=== PATIENT | female | born 1950 | race Caucasian/White ===

== ENCOUNTER → 2016-07-08 | Outpatient (CLI) | payer MEDICARE, MEDICAID ==
[~2016-07-08] MED LIST: ACET650S25 GT; CLON0.1T14 PO; Carbamazepine NG; GABA-531 NG; IPRA3AMP9 HHN; LOV40 SUBCUT; Lactulose PO; OMEP20CA10 PO; Ondansetron Hcl/Pf IV; Thiamine Hcl PO
== END | disposition home or self-care (01) ==
LOC: US 15:52
PROVIDERS: ATTEND Internal Medicine
DX: N63 Unspecified lump in breast (principal)
CPT/HCPCS: 76642

== ENCOUNTER → 2017-08-01 | Day surgery (SDC) | payer MEDICARE, MEDICAID ==
[~2017-08-01] VITALS: Ht 147.3 cm; Wt 54.4 kg
[~2017-08-01] MED LIST changes: +DEXAMETHASONE 4MG/ML 1ML VIAL ONE; +DUONEB3 ML HHN; +FENTANYL CITRATE/PF 50MCG/ML 2ML VIAL ONE; +HYDROMORPHONE HCL/PF 2MG/ML CPJ IV PRN; -IPRA3AMP9 HHN; +LABETALOL 5MG/ML SYR 20 MG/4 ML SYRINGE IV PRN; +MEPERIDINE HCL/PF 25MG/ML CPJ IV PRN; +MIDAZOLAM HCL 2 MG/2 ML VIAL ONE; +ONDANSETRON HCL 4MG/2ML VIAL IV PRN; +ONDANSETRON HCL 4MG/2ML VIAL ONE; +PROPOFOL 200MG/20ML VIAL IV ONE
[2017-08-01 10:37] LABS: BASOPHILS % 1.1 % (0.0-2.0); EOSINOPHILS % 3.3 % (0.0-5.0); HEMOGLOBIN. 12.7 g/dL (12.0-16.0); LYMPHOCYTES % 33.7 % (20.0-50.0); MEAN CORPUSCULAR VOLUME 93.3 fL (81.0-99.0); MEAN PLATELET VOLUME 10.5 fl (7.4-10.4); MONOCYTES % 9.8 % (2.0-8.0); NEUTROPHILS % 52.1 % (40.0-76.0); PLATELET 180 x1000/uL (130-400); RED BLOOD CELL COUNT 3.97 mill/uL (4.2-5.4); RED CELL DISTRIBUTION WIDTH 13.1 % (11.6-14.6)
[2017-08-01 10:44] LABS: CHLORIDE 97 mEq/L (98-107)
[2017-08-01 10:46] LABS: INR 1.1; PARTIAL THROMBOPLASTIN TIME 25.3 sec (23.4-31.0)
== END | disposition home or self-care (01) ==
LOC: OR 07:32
PROVIDERS: ATTEND Internal Medicine Clinical Cardiac Electrophysiology
DX: Z45.010 Encounter for checking and testing of cardiac pacemaker pulse generator [battery] (principal); Z53.8 Procedure and treatment not carried out for other reasons; Z79.899 Other long term (current) drug therapy; Z79.01 Long term (current) use of anticoagulants
CPT/HCPCS: 36415; 80048; 85025; 85610; 85730; 93005; J1100; J2250; J2405; J2704; J3010

== ENCOUNTER 2018-08-02 12:17 | Emergency (ER) | payer MEDICARE, MEDICAID ==
[~2018-08-02] VITALS: Ht 160 cm; Wt 55.0 kg
[~2018-08-02 12:17] MED LIST changes: -DEXAMETHASONE 4MG/ML 1ML VIAL ONE; -FENTANYL CITRATE/PF 50MCG/ML 2ML VIAL ONE; -HYDROMORPHONE HCL/PF 2MG/ML CPJ IV PRN; -LABETALOL 5MG/ML SYR 20 MG/4 ML SYRINGE IV PRN; -MEPERIDINE HCL/PF 25MG/ML CPJ IV PRN; -MIDAZOLAM HCL 2 MG/2 ML VIAL ONE; -ONDANSETRON HCL 4MG/2ML VIAL IV PRN; -ONDANSETRON HCL 4MG/2ML VIAL ONE; -PROPOFOL 200MG/20ML VIAL IV ONE
[2018-08-02] MEDS ORDERED: SODIUM CHLORIDE 0.9% 1,000 ML IV ONE (12:40)
[2018-08-02 13:21] LABS: BASOPHILS % 1.2 % (0.0-2.0); EOSINOPHILS % 3.2 % (0.0-5.0); HEMATOCRIT. 36.7 % (36.0-48.0); HEMOGLOBIN. 12.2 g/dL (12.0-16.0); LYMPHOCYTES % 28.3 % (20.0-50.0); MEAN CORPUSCULAR HEMOGLOBIN 31.5 pg (28.0-32.0); MEAN CORPUSCULAR VOLUME 94.7 fL (81.0-99.0); MEAN PLATELET VOLUME 10.2 fl (7.4-10.4); MONOCYTES % 8.8 % (2.0-8.0); NEUTROPHILS % 58.5 % (40.0-76.0); PLATELET 162 x1000/uL (130-400); RED BLOOD CELL COUNT 3.88 mill/uL (4.2-5.4); RED CELL DISTRIBUTION WIDTH 13.1 % (11.6-14.6)
[2018-08-02 13:24] LABS: CHLORIDE 108 mEq/L (98-107)
[2018-08-02 13:29] LABS: ETHANOL BLOOD < 10 mg/dL
[2018-08-02 14:56] LABS: CLARITY URINE CLEAR (CLEAR); COLOR URINE YELLOW (YELLOW); KETONES URINE NEGATIVE (NEGATIVE); LEUKOCYTE ESTERASE URINE TRACE (NEGATIVE); NITRITE URINE POSITIVE (NEGATIVE); OCCULT BLOOD URINE NEGATIVE (NEGATIVE); PROTEIN URINE NEGATIVE (NEGATIVE); SPECIFIC GRAVITY URINE 1.018 (1.005-1.030); UROBILINOGEN URINE 0.2 E.U./dL (0.2-1.0)
[2018-08-02 15:15] LABS: *AMPHETAMINES SCREEN URINE NEGATIVE (NEGATIVE); *BARBITURATES SCREEN URINE NEGATIVE (NEGATIVE); *BENZODIAZEPINES SCREEN URINE NEGATIVE (NEGATIVE); *COCAINE SCREEN URINE NEGATIVE (NEGATIVE); METHADONE URINE SCREEN NEGATIVE (NEGATIVE); OPIATES URINE SCREEN NEGATIVE (NEGATIVE); PHENCYCLIDINE URINE SCREEN NEGATIVE (NEGATIVE)
[2018-08-02 15:16] LABS: CANNABINOID URINE SCREEN NEGATIVE (NEGATIVE)
[2018-08-02 16:09] VITALS: BP 113/83
== END 2018-08-02 16:55 | disposition home or self-care (01) ==
LOC: ER 12:17 → CANBEDREQ 17:28
DX: E86.0 Dehydration (principal); N39.0 Urinary tract infection, site not specified; R40.4 Transient alteration of awareness; E03.9 Hypothyroidism, unspecified; R79.89 Other specified abnormal findings of blood chemistry; G40.909 Epilepsy, unspecified, not intractable, without status epilepticus; I25.10 Atherosclerotic heart disease of native coronary artery without angina pectoris; F79 Unspecified intellectual disabilities; R62.59 Other lack of expected normal physiological development in childhood; Z88.8 Allergy status to other drugs, medicaments and biological substances; Z95.0 Presence of cardiac pacemaker
CPT/HCPCS: 36415; 70450; 71045; 80053; 80305; 80320; 81003; 82140; 83880; 84443; 84484; 85025; 93005; 96360; 99284; J7030; G0480

== ENCOUNTER 2019-01-24 13:52 | Inpatient (IN) | payer MEDICARE, MEDICAID ==
[~2019-01-24] VITALS: Ht 152.4 cm; Wt 65.8 kg
[~2019-01-24 13:52] MED LIST changes: -OMEP20CA10 PO; +OMEP20CA5 PO
[2019-01-24 15:45] LABS: CHLORIDE 107 mEq/L (98-107); INR 1.5; PROTHROMBIN TIME 14.9 sec (9.6-11.0)
[2019-01-24 15:46] LABS: HEMATOCRIT. 39.1 % (36.0-48.0); HEMOGLOBIN. 13.3 g/dL (12.0-16.0); MEAN CORPUSCULAR HEMOGLOBIN 32.2 pg (28.0-32.0); MEAN CORPUSCULAR VOLUME 94.6 fL (81.0-99.0); MEAN PLATELET VOLUME 10.2 fl (7.4-10.4); PLATELET 172 x1000/uL (130-400); RED BLOOD CELL COUNT 4.14 mill/uL (4.2-5.4); RED CELL DISTRIBUTION WIDTH 13.5 % (11.6-14.6)
[2019-01-24 16:10] LABS: PLATELET ESTIMATE NORMAL
[2019-01-24 17:10] LABS: CLARITY URINE CLOUDY (CLEAR); COLOR URINE YELLOW (YELLOW); KETONES URINE NEGATIVE (NEGATIVE); LEUKOCYTE ESTERASE URINE 1+ (NEGATIVE); NITRITE URINE NEGATIVE (NEGATIVE); OCCULT BLOOD URINE 1+ (NEGATIVE); PROTEIN URINE 1+ (NEGATIVE); SPECIFIC GRAVITY URINE 1.031 (1.005-1.030)
[2019-01-24] MEDS ORDERED: CEFTRIAXONE 1 G PREMIX 50 ML IV ONE (17:30)
[2019-01-24] MEDS ORDERED: CEFTRIAXONE 1,000 MG in DEXTROSE 5% WATER 50 ML IV SCH (18:00)
[2019-01-24] MEDS ORDERED: HYDRALAZINE 20MG/ML VIAL IV PRN (22:30)
[2019-01-24] MEDS ORDERED: CLONIDINE 0.1MG TABLET PO PRN (22:30)
[2019-01-24] MEDS ORDERED: IPRATROPIUM/ALBUTEROL 0.5-3(2.5)MG/3ML NEB HHN PRN (22:30)
[2019-01-24] MEDS ORDERED: GUAIFENESIN 200MG/10ML SUGAR FREE UDC PO PRN (22:30)
[2019-01-24] MEDS ORDERED: DIPHENHYDRAMINE 50MG/ML VIAL IV PRN (22:30)
[2019-01-24] MEDS ORDERED: ONDANSETRON HCL 4MG/2ML INJ IV PRN (22:30)
[2019-01-24] MEDS ORDERED: ACETAMINOPHEN 325MG TABLET PO PRN (22:30)
[2019-01-25] VITALS (7 sets, daily range): BP systolic 113–152; BP diastolic 56–81
[2019-01-25] MEDS ORDERED: MVI, ADULT NO.1 10 ML, FOLIC ACID 1 MG, THIAMINE HCL 100 MG in SODIUM CHLORIDE 0.9% 1,0... IV SCH ×4
[2019-01-25 07:10] LABS: CHLORIDE 110 mEq/L (98-107)
[2019-01-25 07:18] LABS: HDL CHOLESTEROL 60 mg/dL (40-59); PHOSPHORUS 3.1 mg/dL (2.5-4.9)
[2019-01-25 07:19] LABS: LDL CHOLESTEROL 48 mg/dL (5-100); T4 FREE 0.74 ng/dL (0.76-1.46)
[2019-01-25 07:21] LABS: CARBAMAZEPINE 8.1 ug/mL (4-12)
[2019-01-25 07:24] LABS: BASOPHILS % 0.7 % (0.0-2.0); EOSINOPHILS % 2.9 % (0.0-5.0); HEMATOCRIT. 31.4 % (36.0-48.0); HEMOGLOBIN. 10.6 g/dL (12.0-16.0); LYMPHOCYTES % 24.9 % (20.0-50.0); MEAN CORPUSCULAR HEMOGLOBIN 31.7 pg (28.0-32.0); MEAN CORPUSCULAR VOLUME 93.8 fL (81.0-99.0); MEAN PLATELET VOLUME 10.5 fl (7.4-10.4); MONOCYTES % 14.4 % (2.0-8.0); NEUTROPHILS % 57.1 % (40.0-76.0); PLATELET 133 x1000/uL (130-400); RED BLOOD CELL COUNT 3.34 mill/uL (4.2-5.4); RED CELL DISTRIBUTION WIDTH 13.2 % (11.6-14.6)
[2019-01-25] MEDS ORDERED: LEVOFLOXACIN 500MG PREMIX 100 ML IV NR (08:00)
[2019-01-25] MEDS: ASPIRIN 81MG EC TABLET PO SCH (08:54)
[2019-01-25] MEDS: SODIUM CHLORIDE 0.9% 1,000 ML IV SCH ×2 (08:54→21:05)
[2019-01-25] MEDS: CARBAMAZEPINE 200MG TABLET PO SCH ×2 (08:55→21:06)
[2019-01-25] MEDS: ENOXAPARIN 40MG/0.4ML SYR SUBCUT SCH (08:56)
[2019-01-25] MEDS ORDERED: FAMOTIDINE 20MG TABLET PO SCH (21:00)
[2019-01-26] VITALS: BP_SYST 145; BP_SYST 149; BP_DIAS 66; BP_DIAS 78
[2019-01-26 04:00] VITALS: BP 149/89
[2019-01-26] MEDS: SODIUM CHLORIDE 0.9% 1,000 ML IV SCH (05:48)
[2019-01-26 08:00] VITALS: BP 139/63
[2019-01-26] MEDS ORDERED: LEVOFLOXACIN 250MG PREMIX 50 ML IV SCH (08:00)
[2019-01-26] MEDS: ENOXAPARIN 40MG/0.4ML SYR SUBCUT SCH (08:44)
[2019-01-26] MEDS: CARBAMAZEPINE 200MG TABLET PO SCH (08:44)
[2019-01-26] MEDS: ASPIRIN 81MG EC TABLET PO SCH (08:44)
[2019-01-26 15:03] VITALS: BP 122/52
[2019-01-26] MEDS ORDERED: CARB100C4 MT (17:56)
[2019-01-26] MEDS ORDERED: VALS40TA11 MT (17:56)
[2019-01-26] MEDS ORDERED: GABA-529 MT (17:56)
[2019-01-26] MEDS ORDERED: AMLO10TA4 MT (17:56)
== END 2019-01-26 21:35 | disposition home or self-care (01) | DRG 689 ==
LOC: ER 13:52 → 8WST 17:58 → ENRESERV 20:30
PROVIDERS: ADMIT Internal Medicine; ATTEND Internal Medicine
DX: N39.0 Urinary tract infection, site not specified (principal); G93.41 Metabolic encephalopathy; R62.50 Unspecified lack of expected normal physiological development in childhood; R41.89 Other symptoms and signs involving cognitive functions and awareness; G40.909 Epilepsy, unspecified, not intractable, without status epilepticus; E03.9 Hypothyroidism, unspecified; I25.10 Atherosclerotic heart disease of native coronary artery without angina pectoris; Z79.899 Other long term (current) drug therapy; Z95.0 Presence of cardiac pacemaker; Z88.8 Allergy status to other drugs, medicaments and biological substances
CPT/HCPCS: 36415; 71045; 80048; 80061; 80156; 81003; 82140; 83605; 83735; 84100; 84145; 84439; 84443; 84484; 93005; 99285; J0696; J1650; J1956; J3411; J3490; J7030; J7060

== ENCOUNTER 2023-08-27 20:28 | Emergency (ER) | payer MEDICARE, MEDICAID ==
[~2023-08-27] VITALS: Ht 162.6 cm; Wt 73.0 kg
[~2023-08-27 20:28] MED LIST changes: +AMLO10TA4 MT; +CARB100C9 MT; +ENOX40SY27 SUBCUT; +GABA-529 MT; -GABA-531 NG; +GABA-532 NG; -LOV40 SUBCUT; +OMEP20CA14 PO; -OMEP20CA5 PO; +VALS40TA11 MT
[2023-08-27 20:31] VITALS: O2SAT 95
[2023-08-27 22:12] LABS: BASOPHILS % 0.6 % (0.0-2.0); EOSINOPHILS % 0.8 % (0.0-5.0); HEMATOCRIT. 33.5 % (36.0-48.0); HEMOGLOBIN. 11.4 g/dL (12.0-16.0); LYMPHOCYTES % 21.8 % (20.0-50.0); MEAN CORPUSCULAR HEMOGLOBIN 32.9 pg (28.0-32.0); MEAN CORPUSCULAR VOLUME 96.7 fL (81.0-99.0); MEAN PLATELET VOLUME 9.7 fl (7.4-10.4); MONOCYTES % 11.4 % (2.0-8.0); NEUTROPHILS % 65.4 % (40.0-76.0); PLATELET 141 x1000/uL (130-400); RED BLOOD CELL COUNT 3.46 mill/uL (4.2-5.4); RED CELL DISTRIBUTION WIDTH 13.8 % (11.6-14.6); WHITE BLOOD COUNT 9.5 x1000/uL (4.5-11.0)
[2023-08-27 22:21] LABS: POTASSIUM 4.3 mEq/L (3.5-5.1)
[2023-08-27 22:23] LABS: CALCIUM 9.6 mg/dL (8.7-10.4)
[2023-08-27 22:27] LABS: CREATININE 1.7 mg/dL (0.6-1.0)
[2023-08-27] MEDS: SODIUM CHLORIDE 0.9% 1,000 ML IV ONE (23:15)
[2023-08-28] MEDS ORDERED: LACTATED RINGERS 1,000 ML IV SCH (07:45)
[2023-08-28 08:06] VITALS: BP 126/81; PULSE 69; RESP 16; TEMP 98.2
== END 2023-08-28 08:14 | disposition short-term general hospital (02) ==
LOC: ER 20:28
DX: R05.9 Cough, unspecified (principal); E86.0 Dehydration; I10 Essential (primary) hypertension; Z91.048 Other nonmedicinal substance allergy status; Z88.8 Allergy status to other drugs, medicaments and biological substances; Z79.899 Other long term (current) drug therapy; Z98.890 Other specified postprocedural states; Z86.59 Personal history of other mental and behavioral disorders
CPT/HCPCS: 99291; 96360; 96361; 80048; 83880; 85025; 87040; 36415; 71045; 93005; J7030

== ENCOUNTER 2024-01-28 06:03 | Emergency (ER) | payer MEDICARE, MEDICAID ==
[~2024-01-28] VITALS: Ht 175.3 cm; Wt 58.0 kg
[2024-01-28 06:08] VITALS: TEMP 97.5; O2SAT 96
[2024-01-28 06:59] LABS: BASOPHILS % 0.9 % (0.0-2.0); EOSINOPHILS % 2.8 % (0.0-5.0); HEMATOCRIT. 36.9 % (36.0-48.0); HEMOGLOBIN. 12.3 g/dL (12.0-16.0); LYMPHOCYTES % 22.3 % (20.0-50.0); MEAN CORPUSCULAR HEMOGLOBIN 31.4 pg (28.0-32.0); MEAN CORPUSCULAR HGB CONC 33.4 g/dL (31.0-37.0); MEAN CORPUSCULAR VOLUME 94.1 fL (81.0-99.0); MEAN PLATELET VOLUME 10.6 fl (7.4-10.4); MONOCYTES % 9.3 % (2.0-8.0); NEUTROPHILS % 64.7 % (40.0-76.0); PLATELET 169 x1000/uL (130-400); RED BLOOD CELL COUNT 3.93 mill/uL (4.2-5.4); RED CELL DISTRIBUTION WIDTH 13.5 % (11.6-14.6)
[2024-01-28 07:04] LABS: POTASSIUM 4.7 mEq/L (3.5-5.1)
[2024-01-28 07:05] LABS: CALCIUM 10.1 mg/dL (8.7-10.4)
[2024-01-28 07:10] LABS: CREATININE 1.8 mg/dL (0.6-1.0)
[2024-01-28] MEDS: CEFTRIAXONE 1GM/50ML 50 ML IV ONE (07:16)
[2024-01-28] MEDS: SODIUM CHLORIDE 0.9% 1,000 ML IV ONE (07:16)
[2024-01-28 08:09] LABS: PROTHROMBIN TIME 11.1 sec (9.6-11.0)
[2024-01-28] MEDS: AMOXICILLIN/POTASSIUM CLAVULANATE 875/125MG TAB PO ONE (08:50)
[2024-01-28] MEDS ORDERED: AMOX1TAB16 MT (09:19)
[2024-01-28 12:15] VITALS: BP 122/63; PULSE 70; RESP 16; O2SAT 100
== END 2024-01-28 12:16 | disposition home or self-care (01) ==
LOC: ER 06:03
DX: J32.9 Chronic sinusitis, unspecified (principal); I10 Essential (primary) hypertension; Z20.822 Contact with and (suspected) exposure to COVID-19; Z88.8 Allergy status to other drugs, medicaments and biological substances; Z88.2 Allergy status to sulfonamides; Z79.899 Other long term (current) drug therapy; Z86.59 Personal history of other mental and behavioral disorders; Z98.890 Other specified postprocedural states
CPT/HCPCS: 99284; 96365; 71045; 96366; 87426; 80048; 85025; 85610; 87040; 36415; 84145; J0696; J7030

== ENCOUNTER 2024-06-10 20:10 | Emergency (ER) | payer MEDICARE, MEDICAID ==
[~2024-06-10] VITALS: Ht 160 cm; Wt 57.0 kg
[~2024-06-10 20:10] MED LIST changes: +CALC-38 PO; -Carbamazepine NG; +GABA-1180 MT; -GABA-529 MT; -GABA-532 NG; +NEO/5DRO7 EACHEYE; +PETR85OI TP; +SULF1TAB48 MT; -VALS40TA11 MT; +VALS40TA11 PO; +VALS80TA30 PO; +ZINC136C2
[2024-06-10 20:15] VITALS: O2SAT 100
[2024-06-10 21:13] LABS: BASOPHILS % 0.8 % (0.0-2.0); CARBON DIOXIDE 25 mEq/L (21-32); CHLORIDE 103 mEq/L (98-107); EOSINOPHILS % 2.4 % (0.0-5.0); HEMOGLOBIN. 10.8 g/dL (12.0-16.0); LYMPHOCYTES % 15.8 % (20.0-50.0); MEAN CORPUSCULAR HEMOGLOBIN 32.4 pg (28.0-32.0); MEAN CORPUSCULAR HGB CONC 32.9 g/dL (31.0-37.0); MEAN CORPUSCULAR VOLUME 98.4 fL (81.0-99.0); MEAN PLATELET VOLUME 9.4 fl (7.4-10.4); MONOCYTES % 5.8 % (2.0-8.0); NEUTROPHILS % 75.2 % (40.0-76.0); PLATELET 221 x1000/uL (130-400); POTASSIUM 4.6 mEq/L (3.5-5.1); RED BLOOD CELL COUNT 3.35 mill/uL (4.2-5.4); RED CELL DISTRIBUTION WIDTH 14.3 % (11.6-14.6); SODIUM 137 mEq/L (136-145); WHITE BLOOD COUNT 12.2 x1000/uL (4.5-11.0)
[2024-06-10 21:14] LABS: CALCIUM 9.5 mg/dL (8.7-10.4)
[2024-06-10 21:18] LABS: CREATININE 1.1 mg/dL (0.6-1.0)
[2024-06-10 21:19] LABS: GLUCOSE 97 mg/dL (70-105); UREA NITROGEN BLOOD 14 mg/dL (9-23)
[2024-06-10 21:21] LABS: TROPONIN I HIGH SENSITIVITY 5 ng/L (3.0-34)
[2024-06-11 02:15] VITALS: BP 115/65; PULSE 79; RESP 15; TEMP 36.7; O2SAT 99
== END 2024-06-11 02:17 | disposition home or self-care (01) ==
LOC: ER 20:10
DX: R11.2 Nausea with vomiting, unspecified (principal); G80.9 Cerebral palsy, unspecified; I10 Essential (primary) hypertension; I44.7 Left bundle-branch block, unspecified; Z79.899 Other long term (current) drug therapy; Z95.0 Presence of cardiac pacemaker
CPT/HCPCS: 36415; 71045; 80048; 83880; 84484; 85025; 93005; 99285